=== PATIENT | female | born 1975 | race Caucasian/White ===

== ENCOUNTER 2017-01-06 07:34 | Day surgery (SDC) | payer OTHER ==
[~2017-01-06] VITALS: Ht 176.5 cm; Wt 88.6 kg
[~2017-01-06 07:34] MED LIST: BUPR-97 PO; DES50 PO; FLUT9.9S NS; IMI100 PO; METR70GE14 VG; NPR500T PO; SULF1TAB35 PO; Sodium Chloride LOK Flush 10 mL Syringe IV PRN; ZLP5T PO; fentaNYL-PF 50 mCg/mL 2 mL Inj IVPUSH PRN
[2017-01-06 08:04] VITALS: BP 114/72; PULSE 73; RESP 17; O2SAT 96
[2017-01-06] MEDS ORDERED: 0.9% Sodium Chloride 1,000 ML IV ONE (08:17)
[2017-01-06 09:08] VITALS: BP 108/51; PULSE 76; RESP 16; O2SAT 93
[2017-01-06 09:17] VITALS: BP 115/72; PULSE 92; RESP 16; O2SAT 97
--- NOTE | 2017-01-06 11:45 | ENDO ---
[address] [address] ENDOSCOPY PROCEDURE PATIENT: RUFUS GRACIA : 1975 MR#: [id number] ADMIT: 01/06/2017 JOB ID: [id number] DATE: 01/06/2017 TYPE OF OPERATION: Esophagogastroduodenoscopy with biopsy. PREOPERATIVE DIAGNOSIS(ES): Gastroesophageal reflux disease. POSTOPERATIVE DIAGNOSIS(ES): Normal upper endoscopy. ANESTHESIA: 1. Fentanyl 150 mcg. 2. Versed 8 mg IV administered. COMPLICATIONS: None. BLOOD LOSS: Minimal. DESCRIPTION OF PROCEDURE: After risks and benefits had been explained to the patient, informed consent was obtained. After anesthesia administered, an upper endoscope was then inserted into the mouth, intubated through the esophagus, stomach, second portion of duodenum. Mucosa carefully examined. After procedure was done, the scope withdrawn and procedure terminated. FINDINGS: Upon inspection of the esophagus, the esophagus was normal without masses, ulcers or lesions. Z-line located 40 cm from the incisors. Upon entering the stomach, the stomach was also normal without masses, ulcers or lesions. Retroflexion was normal. Duodenal bulb, first and second portion normal. Biopsies taken in the antrum and body of the stomach and distal esophagus. IMPRESSIONS: Normal upper endoscopy, status post biopsy. RECOMMENDATIONS: Await pathology results. Followup with Arabella Ornelas in GI clinic outpatient.
--- NOTE | 2017-01-11 16:54 | PATH ---
SURGICAL PATHOLOGY Attending Physician:Floyd Taylor MD CASE STATUS: Signed Out PATIENT NAME: RUFUS GRACIA PID: [id number] : 1975 DATE COLLECTED:01/06/2017 22:42 SPECIMEN: 1: Stomach, Antrum, Biopsy 2: Gastric, Biopsy 3: Esophagus, Biopsy CLINICAL HISTORY: 1). ANTRUM BIOPSY 2). GASTRIC BIOPSY 3). DISTAL ESOPHAGUS BIOPSY FINAL DIAGNOSIS: 1. Antrum Biopsy: Portion of gastric antral mucosa with mild chronic gastritis and features of reactive gastropathy. No definite H. pylori organisms identified by H&E stain. Immunohistochemistry studies pending; results will be reported as an addendum. Negative for intestinal metaplasia, dysplasia, and malignancy. 2. Gastric Body, Biopsy: Portions of gastric body-type mucosa with no diagnostic abnormality. No definite H. pylori organisms identified on H&E stain. Negative for intestinal metaplasia, dysplasia, and malignancy. 3. Distal Esophagus, Biopsy: Squamocolumnar junctional mucosa with no diagnostic abnormality. Negative for intestinal metaplasia. Negative for dysplasia and malignancy. ICD10: K29.7 GROSS DESCRIPTION: Received are three formalin-filled containers, each labeled with the patient' s name. 1. Received in formalin, labeled with the patient' s name and "antrum", are two fragments of mcneill, soft tissue ranging in size from 0.1 x 0.1 x 0.1 cm to 0.2 x 0.1 x 0.1 cm. All fragments are totally submitted in cassette 1A. 2. Received in formalin, labeled with the patient' s name and "body", are two fragments of mcneill, soft tissue ranging in size from 0.1 x 0.1 x 0.1 cm to 0.2 x 0.1 x 0.1 cm. All fragments are totally submitted in cassette 2A. 3. Received in formalin, labeled with the patient' s name and "distal esophagus", is one fragment of mcneill, soft tissue measuring 0.2 x 0.2 x 0.1 cm. The fragment is totally submitted in cassette 3A. ([id number]) ICD-9 CODES: CPT CODES: 1: 95957, 66269 2: 33418 3: 94911 PROCEDURE/ADDENDA: Immunohistochemistry SPI Interpretation {Not Entered} Results-Comments Immunohistochemistry Result: 1.GASTRIC ANTRUM BIOPSY: NEGATIVE FOR HELICOBACTER PYLORI BY IMMUNOHISTOCHEMISTRY. This test was developed and its performance characteristics determined by [facility]. It has not been cleared or approved by the [place]. Food and Drug Administration. The FDA has determined that such clearance or approval is not necessary. This test is used for clinical purposes. It should not be regarded as investigational or for research. Electronically Signed Out Colin Tian MD Electronically Signed Out Clara Smallwood MD [facility] Pathology [facility] [address], [place] [address] Technical component performed at [facility], [facility] [address], [address]
== END 2017-01-06 23:59 | disposition home or self-care (01) ==
LOC: END 07:34
PROVIDERS: ATTEND Internal Medicine Gastroenterology
DX: K21.9 Gastro-esophageal reflux disease without esophagitis (principal); K29.50 Unspecified chronic gastritis without bleeding; G47.30 Sleep apnea, unspecified; F41.8 Other specified anxiety disorders
CPT/HCPCS: 43239; G0500; J7030